=== PATIENT | female | born 1945 | race Caucasian/White ===

== ENCOUNTER 2023-11-29 18:28 | Emergency (ER) | payer MEDICARE, SELFPAY ==
[2023-11-29 18:40] VITALS: BP 156/84; PULSE 80; RESP 16; TEMP 37; O2SAT 98
[2023-11-29 19:09] VITALS: BP 156/84; PULSE 80; O2SAT 98
[2023-11-29 19:34] LABS: Glucose Point of Care 113 mg/dl (65-105)
--- NOTE | 2023-11-29 19:35 | ED.GENADULT ---
HPI - General Adult General Chief complaint: Urogenital-Female Stated complaint: urinary issue Time Seen by Provider: 11/29/23 19:36 Source: patient and RN notes reviewed Mode of arrival: ambulatory Limitations: no limitations History of Present Illness HPI narrative: 70-year-old female presented for complaint of stabbing bladder pain and urgency, onset today. She states she has been getting urinary tract infections recently, and she started a leftover course of amoxicillin which was prescribed in 11/05, stating she only took 2 days worth of the medication because she was feeling better. denies hematuria, nausea, vomiting, abdominal pain, flank pain, constipation, diarrhea, fevers or chills. Related Data Home Medications Medication Instructions Recorded Confirmed amoxicillin 875 mg tablet 875 mg PO BID 11/29/23 11/29/23 meloxicam 7.5 mg tablet 7.5 mg PO DAILY PRN Pain 11/29/23 11/29/23 metformin 500 mg tablet 500 mg PO BID 11/29/23 11/29/23 oxybutynin chloride 5 mg tablet 5 mg PO TID 11/29/23 11/29/23 Allergies Allergy/AdvReac Type Severity Reaction Status Date / Time Sulfa (Sulfonamide Allergy Hives Verified 11/29/23 19:09 Antibiotics) Review of Systems Review of Systems: CONSTITUTIONAL: Denies body aches, fever, chills, or sweats. CARDIOVASCULAR: Denies chest pain, palpitations, or edema. RESPIRATORY: Denies cough or dyspnea. GASTROINTESTINAL: Denies abdominal pain, nausea, vomiting, or diarrhea. GENITOURINARY: Reports dysuria, frequency, urgency,denies hematuria, flank pain SKIN: Denies rash, itching, or wounds. MUSCULOSKELETAL: Denies back pain or myalgia. [facility] Past Medical History Medical History (Updated 11/29/23 @ 20:15 by Susan Lea, YENNY) No pertinent past medical history Comments At time of signature, I have reviewed and agree with nursing past medical, surgical, social and family history unless otherwise noted. Please see nursing chart for further information. There is no relevant family history pertinent to the presenting complaint Exam Narrative: GENERAL: Well-appearing and in no acute distress. ENT: Mucous membranes pink and moist. NECK: Normal AROM. Supple. CHEST: No respiratory distress. Clear to auscultation. HEART: Regular rate and rhythm. ABDOMEN: Soft, nontender, nondistended, normal active bowel sounds. No CVA tenderness SKIN: Warm, dry, no rash. NEURO: No focal deficits. Alert and oriented x3. Gait steady. PSYCH: Normal affect. No signs of depression or anxiety. Course Course Emergency Course: Patient is aware of diagnosis, understands and agrees to treatment plan. Anticipatory guidance given. Patient agrees to follow-up as directed and is aware of reasons to seek care at the emergency department. Portions of this record may have been created with voice recognition software Level of Care: Express Care Visit Vital Signs Vital signs: Vital Signs Temperature 98.6 F 11/29/23 18:40 Pulse Rate 80 11/29/23 18:40 Respiratory Rate 16 11/29/23 18:40 Blood Pressure 156/84 H 11/29/23 18:40 Pulse Oximetry 98 11/29/23 18:40 Oxygen Delivery Room Air 11/29/23 18:40 Temperature 98.6 F 11/29/23 18:40 Pulse Rate 80 11/29/23 19:09 Respiratory Rate 16 11/29/23 18:40 Blood Pressure 156/84 H 11/29/23 19:09 Pulse Oximetry 98 11/29/23 19:09 Oxygen Delivery Room Air 11/29/23 18:40 Reviewed Medical Decision Making MDM Narrative Medical decision making narrative: discussed patient's symptoms at length. Patient is well-appearing but continues to report stabbing bladder pain. Advised ER transfer, however she declines at this time. Pt resides in [place], and plans to return home tomorrow. She is accompanied by her [id number] who will closely monitor her and take her to the emergency room if symptoms worsen. She will resume the previously prescribed amoxicillin, she has 10 day course remaining. Discussed physical exam
== END 2023-11-29 20:21 | disposition home or self-care (01) ==
PROVIDERS: Emergency Provider Nurse Practitioner Family
DX: N39.0 Urinary tract infection, site not specified (principal)
CPT/HCPCS: 81003; 82948; 87086; 99213; G0463

== ENCOUNTER 2024-11-30 10:58 | Emergency (ER) | payer MEDICARE, SELFPAY ==
[2024-11-30 11:04] VITALS: BP 151/91; PULSE 92; RESP 20; TEMP 36.7; O2SAT 99
--- NOTE | 2024-11-30 11:50 | ED_ITS ---
HPI - URI/Sore Throat General Chief Complaint: Upper Respiratory Infection Stated Complaint: COVID + Time Seen by Provider: 11/30/24 11:50 Source: patient, RN notes reviewed and old records reviewed Mode of arrival: ambulatory Limitations: no limitations History of Present Illness HPI Narrative: Patient presents with complaints of runny nose and body aches, head congestion. She reports that symptoms have been present for 3 days. She does to positive for COVID-19 yesterday. She has been taking Tylenol with minimal relief. She denies any cough,fever, or shortness of breath Related Data Home Medications ?Medication ?Instructions ?Recorded ?Confirmed ?Last Taken ?Type amoxicillin 875 mg tablet 875 mg PO BID 11/29/23 11/29/23 Unknown History metformin 500 mg tablet 500 mg PO BID 11/29/23 11/29/23 Unknown History oxybutynin chloride 5 mg tablet 5 mg PO TID 11/29/23 11/29/23 Unknown History duloxetine 60 mg capsule,delayed mg PO 11/30/24 Unknown History release Allergies Allergy/AdvReac Type Severity Reaction Status Date / Time Sulfa (Sulfonamide Allergy Hives Verified 11/30/24 11:14 Antibiotics) Review of Systems Review of Systems: All systems reviewed & are unremarkable except as noted in HPI and below Constitutional: Constitutional: Reports no additional constitutional complaints, Reports body ache(s) and Reports lethargy ENT: Reports system reviewed and no additional complaints, except as documented and Reports nasal congestion Cardiovascular: Cardiovascular: Reports no additional cardiovascular complaints Respiratory: Respiratory: Reports no additional respiratory complaints Gastrointestinal: Gastrointestinal: Reports no additional gastrointestinal complaints REPLACED BY [facility] Past Medical History Medical History (Updated 11/30/24 @ 12:03 by Viv Lujan APRN) No pertinent past medical history Comments At the time of my signature, I reviewed and agree with the nursing past medical, surgical, social, and family history. There is no relevant family history pertinent to the patient complaint. Exam Const: General: cooperative, no acute distress, alert and awake Orientation/consciousness: oriented to person, oriented to place and oriented to time HENMT: Head: normal to inspection Mouth: Yes moist mucous membranes Resp: Effort & Inspection: normal respiratory effort and able to speak in complete sentences Auscultation: clear to auscultation bilaterally, no crackles, no rales, no rhonchi and no wheezes Cardio: Palpation: normal PMI Rate: regular rate Rhythm: regular rhythm Heart sounds: S1 normal heart sound present and S2 normal heart sound present Neuro: General: oriented to person, oriented to place and oriented to time Cranial nerves: Yes CN's II-XII intact bilaterally Psych: Appearance: grossly normal Thought process: Normal thought process present Insight: Good insight present (Psych) Judgement: Good judgement present (Psych) Course Course Level of Care: Express Care Visit Vital Signs Vital signs: Vital Signs Temperature 98.0 F 11/30/24 11:04 Pulse Rate 92 11/30/24 11:04 Respiratory Rate 20 11/30/24 11:04 Blood Pressure 151/91 H 11/30/24 11:04 Pulse Oximetry 99 11/30/24 11:04 Oxygen Delivery Room Air 11/30/24 11:04 Temperature 98.0 F 11/30/24 11:04 Pulse Rate 92 11/30/24 11:04 Respiratory Rate 20 11/30/24 11:04 Blood Pressure 151/91 H 11/30/24 11:04 Pulse Oximetry 99 11/30/24 11:04 Oxygen Delivery Room Air 11/30/24 11:04 Reviewed MDM - URI/Sore Throat MDM Narrative Medical decision making narrative: Reassuring physical exam. Patient nontoxic appearing. Supportive care measures discussed. Discharge instructions reviewed with patient, as well as provided in writing per nursing staff. The instructions also include specific and strict return/GO TO THE ER as well as f/u information. All questions have been answered, and the patient deny any further questions with discharge and discharge plan. Some parts of this dictation were generated by voice recognition software and may contain typographical and/or grammatical inaccuracies. Differential Diagnosis Differential diagnosis: Likely upper respiratory infection and influenza Discharge Plan Discharge Clinical Impression: COVID-19 Patient Disposition: Home, Self-Care Condition: Stable Instructions: Antibiotic Form, How to Recover from COVID-19 at Home (ED) Additional Instructions: Plenty of rest and fluids. Take [id number] medications to treat her symptoms. Follow package instructions. Emergency department for new or worse symptoms. Follow up with primary care provider Patient Language: Italian Prescriptions: No Action meloxicam 7.5 mg Tablet 7.5 mg PO DAILY PRN (Reason: Pain) amoxicillin 875 mg tablet 875 mg PO BID Patient Comments: approx 18 pills left in bottle dispensed 11/05/23 oxybutynin chloride 5 mg Tablet 5 mg PO TID metformin 500 mg Tablet 500 mg PO BID ibuprofen 800 mg tablet 800 mg PO TID PRN (Reason: pain) Qty: 12 0RF duloxetine 60 mg capsule,delayed release(DR/EC) PO Follow-up/Referrals: UNKNOWN,DOCTOR [Primary Care Provider] - Time of Disposition: 12:03
== END 2024-11-30 12:08 | disposition home or self-care (01) ==
PROVIDERS: Emergency Provider Nurse Practitioner Family
DX: U07.1 COVID-19 (principal)
CPT/HCPCS: 99211; G0463